=== PATIENT | female | born 1995 | race Caucasian/White ===

== ENCOUNTER 2022-01-21 23:25 | Emergency (ER) | payer BC, OTHER ==
[2022-01-22] MEDS ORDERED: Ondansetron ODT 4 MG TAB ONE ×2 (00:07→00:15)
[2022-01-22 00:45] LABS: Pregnancy Test - Urine (BHCG) Negative (Negative)
[2022-01-22 00:46] LABS: Pregu Control Background? CLEAR/WHITE (CLR/WHITE); Pregu Control Bar Appear? YES (CONTROL BAR); Specific Gravity 1.025 (1.002-1.036)
== END 2022-01-22 01:13 | disposition home or self-care (01) ==
LOC: CSHERS 23:25
DX: R11.2 Nausea with vomiting, unspecified (principal); R19.7 Diarrhea, unspecified
CPT/HCPCS: 81025; 99284; Q0162